=== PATIENT | female | born 1960 | race Caucasian/White ===

== ENCOUNTER → 2018-10-20 | Outpatient (REF) | payer OTHER | LOC: M LAB LCGH 11:55 | PROVIDERS: ATTEND Family Medicine | DX: Z12.4 Encounter for screening for malignant neoplasm of cervix (principal); N95.9 Unspecified menopausal and perimenopausal disorder ==

== ENCOUNTER → 2020-11-07 | Outpatient (CLI) | payer OTHER ==
[~2020-11-07] MED LIST: ATEN50TA2 PO; CALTAB PO; CAPT1TAB18 PO; CO Q200C10 PO; CVS1CAP2 PO; FARX1TAB5 PO; K-PHTAB4 PO; LATA0.0015 OU; LOVA40TA PO; METF500T13 PO; OMEP-218 PO; ROSU20TA5 PO; SERT50TA29 PO; VITMTA PO; [UNRECOGNIZED DRUG - CODE] PO; [UNRECOGNIZED DRUG - CODE] PO
== END ==
LOC: M LABSMTC 10:38
PROVIDERS: ATTEND Anesthesiology
DX: Z01.818 Encounter for other preprocedural examination (principal); Z11.52 Encounter for screening for COVID-19

== ENCOUNTER 2020-11-12 06:47 | Day surgery (SDC) | payer OTHER ==
[~2020-11-12] VITALS: Ht 162.6 cm; Wt 91.2 kg
[~2020-11-12 06:47] MED LIST changes: +NS 1,000 ML IV ONE
[2020-11-12] MEDS ORDERED: fentaNYL 100 MCG/2 ML INJECTION (J3010) As Ordered ONE (07:26)
[2020-11-12] MEDS ORDERED: propofoL 200 MG/20 ML VIAL As Ordered ONE (07:26)
[2020-11-12] MEDS ORDERED: LIDOCAINE 2% 100MG/5ML SDV (FOR ANES.) As Ordered ONE (07:26)
[2020-11-12 08:22] VITALS: BP 145/83
--- NOTE | 2020-11-12 08:24 | ROOR ---
Patient Name: Tamera Hoover Procedure Date: 11/12/2020 7:35 AM Date of : 1960 Age: 60 Room: [facility] Gender: Female Note Status: Finalized Procedure: Upper GI endoscopy Indications: Dysphagia, Heartburn Providers: Isaías Everett MD Referring MD: Zari Joe Np Requesting Provider: Medicines: Monitored Anesthesia Care Complications: No immediate complications. Procedure: Pre-Anesthesia Assessment: - Prior to the procedure, a History and Physical was performed, and patient medications and allergies were reviewed. The patient is competent. The risks and benefits of the procedure and the sedation options and risks were discussed with the patient. All questions were answered and informed consent was obtained. Patient identification and proposed procedure were verified by the physician, the nurse and the anesthesiologist in the pre-procedure area. Mental Status Examination: alert and oriented. Airway Examination: normal oropharyngeal airway and neck mobility. Respiratory Examination: clear to auscultation. CV Examination: normal. Prophylactic Antibiotics: The patient does not require prophylactic antibiotics. Prior Anticoagulants: The patient has taken no previous anticoagulant or antiplatelet agents. ASA Grade Assessment: II - A patient with mild systemic disease. After reviewing the risks and benefits, the patient was deemed in satisfactory condition to undergo the procedure. The anesthesia plan was to use monitored anesthesia care (MAC). Immediately prior to administration of medications, the patient was re-assessed for adequacy to receive sedatives. The heart rate, respiratory rate, oxygen saturations, blood pressure, adequacy of pulmonary ventilation, and response to care were monitored throughout the procedure. The physical status of the patient was re-assessed after the procedure. The Endoscope was introduced through the mouth, and advanced to the second part of duodenum. The upper GI endoscopy was accomplished without difficulty. The patient tolerated the procedure well. Findings: The examined esophagus was normal. The Z-line was regular and was found 39 cm from the incisors. Scattered mild inflammation characterized by erythema and granularity was found in the gastric antrum. Biopsies were taken with a cold forceps for Helicobacter pylori testing. Verification of patient identification for the specimen was done by the physician and nurse using the patient's name, date and medical record number. Estimated blood loss was minimal. The duodenal bulb and second portion of the duodenum were normal. A 15 mm non-bleeding diverticulum was found in the second portion of the duodenum. Impression: - Normal esophagus. - Z-line regular, 39 cm from the incisors. - Gastritis. Biopsied. - Normal duodenal bulb and second portion of the duodenum. - Non-bleeding duodenal diverticulum. Recommendation: - Patient has a contact number available for emergencies. The signs and symptoms of potential delayed complications were discussed with the patient. Return to normal activities tomorrow. Written discharge instructions were provided to the patient. - High fiber diet. - Continue present medications. - Await pathology results. - Follow an antireflux regimen. - Telephone GI clinic for pathology results in 2 weeks. - Return to GI clinic if persistent symptoms or new symptoms. - Return to primary care physician. Procedure Code(s): --- Professional --- 98989, Esophagogastroduodenoscopy, flexible, transoral; with biopsy, single or multiple Diagnosis Code(s): --- Professional --- K29.70, Gastritis, unspecified, without bleeding R13.10, Dysphagia, unspecified R12, Heartburn K57.10, Diverticulosis of small intestine without perforation or abscess without bleeding CPT copyright 2019 [employer]. All rights reserved. The codes documented in this report are preliminary and upon him coder review may be revised to meet current compliance requirements. Isaías Everett MD Isaías Everett MD 11/12/2020 8:24:24 AM Electronically signed by Isaías Everett MD Number of Addenda: 0 Note Initiated On: 11/12/2020 7:35 AM Estimated Blood Loss: Estimated blood loss was minimal.
== END 2020-11-12 08:30 | disposition home or self-care (01) ==
LOC: M OPP 06:47
PROVIDERS: ATTEND Internal Medicine Gastroenterology
DX: K29.70 Gastritis, unspecified, without bleeding (principal); K57.10 Diverticulosis of small intestine without perforation or abscess without bleeding; R13.10 Dysphagia, unspecified; R12 Heartburn; Z79.84 Long term (current) use of oral hypoglycemic drugs; Z79.899 Other long term (current) drug therapy; Z80.41 Family history of malignant neoplasm of ovary
CPT/HCPCS: 43239; 88305; J3010

== ENCOUNTER 2022-02-04 09:04 | Emergency (ER) | payer OTHER ==
[~2022-02-04 09:04] MED LIST changes: -NS 1,000 ML IV ONE; +OMEP-173 PO; -OMEP-218 PO
[2022-02-04 09:35] LABS: HEMATOCRIT 37.8 % (36.0-47.0); MEAN CORPUSCULAR HEMOGLOBIN 29.6 pg (27.0-33.0); MEAN CORPUSCULAR HGB CONC 31.7 g/dl (32.0-36.5); MEAN CORPUSCULAR VOLUME 93.3 fl (80.0-96.0); PLATELET COUNT, AUTOMATED 309 10^3/uL (150-450); RED BLOOD COUNT 4.05 10^6/uL (4.00-5.40); WHITE BLOOD COUNT 6.1 10^3/uL (4.0-10.0)
[2022-02-04 10:11] LABS: RSV AMPLIFICATION NEGATIVE (NEGATIVE)
[2022-02-04 10:18] LABS: ACETAMINOPHEN LEVEL < 2.0 UG/ML (10.0-30.0); ALBUMIN 3.7 GM/DL (3.2-5.2); ALT/SGPT 16 U/L (12-78); BILIRUBIN,DIRECT 0.2 MG/DL (0.0-0.2); BILIRUBIN,TOTAL 0.6 MG/DL (0.2-1.0); BLOOD UREA NITROGEN 12 MG/DL (7-18); CARBON DIOXIDE LEVEL 26 MEQ/L (21-32); CHLORIDE LEVEL 104 MEQ/L (98-107); CREATININE FOR GFR 1.04 MG/DL (0.55-1.30); ETHYL ALCOHOL (ETHANOL) < 0.003 % (0.000-0.010); GLOMERULAR FILTRATION RATE 57.5 (>45); GLUCOSE, FASTING 175 MG/DL (70-100); POTASSIUM SERUM 3.1 MEQ/L (3.5-5.1); SALICYLATE LEVEL < 1.7 MG/DL (5.0-30.0); SODIUM LEVEL 138 MEQ/L (136-145); TOTAL PROTEIN 8.4 GM/DL (6.4-8.2)
[2022-02-04] MEDS ORDERED: POTASSIUM CHLORIDE 10MEQ SR TABLET PO ONE (11:40)
[2022-02-04] MEDS ORDERED: OMEG12004 PO (15:19)
[2022-02-04] MEDS ORDERED: D32000CA PO (15:19)
[2022-02-04] MEDS ORDERED: GARL500C2 PO (15:19)
[2022-02-04] MEDS ORDERED: PROBCAP14 PO (15:19)
[2022-02-04] MEDS ORDERED: GINK125C PO (15:19)
[2022-02-04] MEDS ORDERED: COMMENTS (15:23)
[2022-02-04] MEDS ORDERED: HOME MED LIST COMPLETE! XX SCH (15:25)
[2022-02-04] MEDS ORDERED: diphenhydrAMINE 50MG/ML VIAL (J1200) IM ONE (15:55)
[2022-02-04] MEDS ORDERED: HALOPERIDOL 5MG/ML VIAL (J1630 PER 1) IM ONE (15:55)
[2022-02-04] MEDS ORDERED: MIDAZOLAM INJ 2MG/2ML VIAL (J2250 PER 1MG) IM ONE (15:55)
[2022-02-04 18:10] LABS: AMPHETAMINES LEVEL URINE NEGATIVE (NEGATIVE); BARBITURATES URINE NEGATIVE (NEGATIVE); BENZODIAZEPINES URINE POSITIVE (NEGATIVE); CANNABINOIDS URINE NEGATIVE (NEGATIVE); COCAINE METABOLITE URINE NEGATIVE (NEGATIVE); METHADONE URINE NEGATIVE (NEGATIVE); OPIATES URINE NEGATIVE (NEGATIVE); PHENCYCLIDINE URINE NEGATIVE (NEGATIVE)
[2022-02-05] MEDS ORDERED: metFORMIN (GLUCOPHAGE) 1000MG TABLET PO ONE (19:45)
[2022-02-05] MEDS ORDERED: CAPTOpril 12.5 MG TAB PO ONE (19:45)
[2022-02-05] MEDS ORDERED: CALCIUM CARBONATE 500 MG CHEW U/D PO ONE (19:45)
[2022-02-05] MEDS ORDERED: OMEPRAZOLE 20MG CAP PO ONE (19:45)
[2022-02-05] MEDS ORDERED: LATANOPROST 0.005% OPHTH SOLN 2.5 ML OU STA (20:33)
[2022-02-06] MEDS ORDERED: SERTRALINE HCL 50 MG TAB PO SCH (09:35)
[2022-02-06] MEDS: OMEPRAZOLE 20MG CAP PO SCH ×2 (10:18→21:20)
[2022-02-06] MEDS: SERTRALINE HCL 50 MG TAB PO SCH (10:18)
[2022-02-06] MEDS: atenoloL 50 MG TAB PO SCH (10:19)
[2022-02-06] MEDS: metFORMIN (GLUCOPHAGE) 1000MG TABLET PO SCH ×2 (11:21→17:58)
[2022-02-06] MEDS: CAPTOpril 12.5 MG TAB PO SCH ×2 (11:46→21:19)
[2022-02-06] MEDS ORDERED: ROSUVASTATIN 10 MG TAB (CRESTOR) PO SCH ×2 (21:00)
[2022-02-06] MEDS ORDERED: metFORMIN (GLUCOPHAGE) 1000MG TABLET PO SCH (21:00)
[2022-02-06] MEDS ORDERED: OMEPRAZOLE 20MG CAP PO SCH (21:00)
[2022-02-06] MEDS ORDERED: CAPTOpril 12.5 MG TAB PO SCH (21:00)
[2022-02-07] MEDS: metFORMIN (GLUCOPHAGE) 1000MG TABLET PO SCH (08:00)
[2022-02-07 09:00] VITALS: BP 140/88
[2022-02-07] MEDS: atenoloL 50 MG TAB PO SCH (09:00)
[2022-02-07] MEDS: CAPTOpril 12.5 MG TAB PO SCH (09:00)
[2022-02-07] MEDS: OMEPRAZOLE 20MG CAP PO SCH (09:00)
[2022-02-07] MEDS ORDERED: atenoloL 50 MG TAB PO SCH (09:00)
[2022-02-07] MEDS: SERTRALINE HCL 50 MG TAB PO SCH (10:32)
[2022-02-07 10:38] VITALS: BP 140/88
== END 2022-02-07 10:43 | disposition home or self-care (01) ==
LOC: M ED 09:04
DX: F23 Brief psychotic disorder (principal); J30.89 Other allergic rhinitis; Z79.899 Other long term (current) drug therapy
CPT/HCPCS: 36415; 70450; 80048; 80076; 80143; 80307; 82077; 84443; 85027; 87631; 93005; 96372; 99285; J1200; J1630; J2250

== ENCOUNTER 2022-04-09 20:09 | Emergency (ER) | payer OTHER ==
[~2022-04-09] VITALS: Ht 162.6 cm; Wt 80.0 kg
[~2022-04-09 20:09] MED LIST changes: +COMMENTS; +D32000CA PO; +GARL500C2 PO; +GINK125C PO; +OMEG12004 PO; +PROBCAP14 PO
[2022-04-09] MEDS ORDERED: ARIP1TAB4 (20:19)
[2022-04-09 20:47] LABS: HEMATOCRIT 36.6 % (36.0-47.0); HEMOGLOBIN 11.9 g/dl (12.0-15.5); MEAN CORPUSCULAR HEMOGLOBIN 30.1 pg (27.0-33.0); MEAN CORPUSCULAR HGB CONC 32.5 g/dl (32.0-36.5); MEAN CORPUSCULAR VOLUME 92.7 fl (80.0-96.0); PLATELET COUNT, AUTOMATED 252 10^3/uL (150-450); RED BLOOD COUNT 3.95 10^6/uL (4.00-5.40); WHITE BLOOD COUNT 9.3 10^3/uL (4.0-10.0)
[2022-04-09 21:28] LABS: AMPHETAMINES LEVEL URINE NEGATIVE (NEGATIVE); BARBITURATES URINE NEGATIVE (NEGATIVE); BENZODIAZEPINES URINE NEGATIVE (NEGATIVE); CANNABINOIDS URINE NEGATIVE (NEGATIVE); COCAINE METABOLITE URINE NEGATIVE (NEGATIVE); METHADONE URINE NEGATIVE (NEGATIVE); OPIATES URINE NEGATIVE (NEGATIVE); PHENCYCLIDINE URINE NEGATIVE (NEGATIVE)
[2022-04-09 21:40] LABS: ACETAMINOPHEN LEVEL < 2.0 UG/ML (10.0-30.0); ALBUMIN 3.1 GM/DL (3.2-5.2); ALT/SGPT 16 U/L (12-78); BILIRUBIN,DIRECT < 0.1 MG/DL (0.0-0.2); BILIRUBIN,TOTAL 0.2 MG/DL (0.2-1.0); BLOOD UREA NITROGEN 20 MG/DL (7-18); CALCIUM LEVEL 9.3 MG/DL (8.8-10.2); CARBON DIOXIDE LEVEL 29 MEQ/L (21-32); CHLORIDE LEVEL 101 MEQ/L (98-107); CREATININE FOR GFR 1.09 MG/DL (0.55-1.30); ETHYL ALCOHOL (ETHANOL) < 0.003 % (0.000-0.010); GLOMERULAR FILTRATION RATE 54.5 (>45); GLUCOSE, FASTING 180 MG/DL (70-100); POTASSIUM SERUM 3.9 MEQ/L (3.5-5.1); SALICYLATE LEVEL < 1.7 MG/DL (5.0-30.0); SODIUM LEVEL 134 MEQ/L (136-145); TOTAL PROTEIN 7.8 GM/DL (6.4-8.2)
[2022-04-09 21:43] LABS: RSV AMPLIFICATION NEGATIVE (NEGATIVE)
[2022-04-10 02:31] VITALS: BP 158/74
== END 2022-04-10 02:33 | disposition home or self-care (01) ==
LOC: M ED 20:09
DX: F43.0 Acute stress reaction (principal); J30.89 Other allergic rhinitis; Z79.899 Other long term (current) drug therapy